=== PATIENT | female | born 1990 | race Caucasian/White ===

== ENCOUNTER 2018-11-27 20:28 | Inpatient (IN) | payer OTHER ==
[2018-11-27 20:57] VITALS: BMI 24.2
--- NOTE | 2018-11-27 21:16 | HP ---
COWS - Scale Resting Pulse: 1= [place] 81-100 Sweatin=Flushed/Facial Moisture Restless Observation: 1= Difficult to Sit Still Pupil Size: 1= Pupils >than Normal Bone or Joint Aches: 4=Acute Joint/Muscle Pain Runny Nose/ Eye Tearin= Runny Nose/Eyes GI Upset > 30mins: 1= Stomach Cramp Tremor Observation: 1= Tremor [place], Not Seen Yawning Observation: 1= 1-2x During Session Anxiety or Irritability: 2=Irritable/Anxious Goose Flesh Skin: 3=Piloerection COWS Score: 19 CIWA Score - Admission Criteria OASAS Guidelines: Admission for Medically Managed Detox: Requires at least one of the followin. CIWA greater than 12 2. Seizures within the past 24 hours 3. Delirium tremens within the past 24 hours 4. Hallucinations within the past 24 hours 5. Acute intervention needed for co occurring medical disorder 6. Acute intervention needed for co occurring psychiatric disorder 7. Severe withdrawal that cannot be handled at a lower level of care (continued vomiting, continued diarrhea, abnormal vital signs) requiring intravenous medication and/or fluids 8. Admission ROS [facility] Chief Complaint: SSEKING DETOX FRO HEROIN ABUSE. C/O WITHDRAWAL SX'S Allergies/Adverse Reactions: Allergies Allergy/AdvReac Type Severity Reaction Status Date / Time No Known Allergies Allergy Verified 11/27/18 20:50 History of Present Illness: 28 Y.O. FEMALE WITH 2 YEAR HX/O OPIOID DEPENDENCE HERE FOR DETOX. THIS IS CLIENTS FIRST VISIT HERE AND SHE REPORTS THIS IS HER FIRST ATTEMPT AT DETOX. PRESENTS WITH C/O WITHDRAWAL SX'S. COWS 19. UTOX + BZO, MOP, GEOFF. STATES ONLY TOOK A 2 MG VALIUM TO HELP HER SLEEP 5 DAYS AGO. SHE IS REFERRED BY A FRIEND. DENIES IVDA, DRUG OVERDOSE, SZ, SI,HI. DOMICILED, EMPLOYED, DENIES LEGALS. Exam Limitations: No Limitations - Ebola screening Have you traveled outside of the country in the last 21 days: No (N) Have you had contact with anyone from an Ebola affected area: No Do you have a fever: No - Review of Systems Constitutional: Chills, Loss of Appetite, Malaise, Night Sweats, Changes in sleep EENT: reports: Nose Congestion, Dental Problems (POOR DENTITION), Other ( RINORRHEA) Respiratory: reports: No Symptoms reported GI: reports: Poor Appetite, Poor Fluid Intake, Abdominal cramping : reports: No Symptoms Reported Musculoskeletal: reports: Back Pain, Joint Pain Integumentary: reports: Flushing, Sweating Neuro: reports: Tremors, Weakness Endocrine: reports: No Symptoms Reported Hematology: reports: No Symptoms Reported Psychiatric: reports: Orientated x3, Agitated (IRRITABLE), Anxious, Depressed Other Systems: Reviewed and Negative Patient History - Patient Medical History Hx Anemia: No Hx Asthma: No Hx Chronic Obstructive Pulmonary Disease (COPD): No Hx Cancer: No Hx Cardiac Disorders: No Hx Congestive Heart Failure: No Hx Hypertension: No Hx Hypercholesterolemia: No Hx Pacemaker: No HX Cerebrovascular Accident: No Hx Seizures: No Hx Dementia: No Hx Diabetes: No Hx Gastrointestinal Disorders: No Hx Liver Disease: No Hx Genitourinary Disorders: No Hx Sexually Transmitted Disorders: No Hx Renal Disease (ESRD): No Hx Thyroid Disease: No Hx Human Immunodeficiency Virus (HIV): No Hx Hepatitis C: No Hx Depression: No Hx Suicide Attempt: No Hx Bipolar Disorder: No Hx Schizophrenia: No Other Medical History: DENIES - Patient Surgical History Past Surgical History: No - PPD History Previous Implant?: Yes Documented Results: Negative w/o proof Implanted On Prior [facility] Admission?: No PPD to be Administered?: Yes - Reproductive History Patient is a Female of Child Bearing Age (11 -55 yrs old): Yes LMP comment: 11/13/2018 Patient : No (NEGATIVE) - Smoking Cessation Smoking history: Current every day smoker Have you smoked in the past 12 months: Yes Aproximately how many cigarettes per day: 5 Cigars Per Day: 0 Hx Chewing Tobacco Use: No Initiated information on smoking cessation: Yes 'Breaking Loose' booklet given: 11/27/18 - Substance & Tx. History Hx Alcohol Use: No Hx Substance Use: Yes Substance Use Type: Cocaine, Heroin Hx Substance Use Treatment: No - Substances abused Heroin Substance route: Inhalation Frequency: Daily Amount used: 6bags/day Age of first use: 26 Date of last use: 11/27/18 Cocaine Substance route: Inhalation Frequency: 1-3 times last 30 days Amount used: 1/2 BAG Age of first use: 25 Date of last use: 11/27/18 Family Disease History - Family Disease History Family History: Denies Admission Physical Exam BHS - Vital Signs Vital Signs: Vital Signs - 24 hr 11/27/18 20:51 Temperature 99.0 F Pulse Rate 92 H Respiratory 18 Rate Blood Pressure 133/87 - Physical General Appearance: Yes: Moderate Distress, Tremorous, Irritable, Sweating, Anxious HEENTM: Yes: EOMI, Normocephalic, Normal Voice, [place] (tearing), Pharynx Normal, Nasal Congestion, Rhinorrhea Respiratory: Yes: Chest Non-Tender, Lungs Clear, Normal Breath Sounds, No Respiratory Distress, No Accessory Muscle Use Neck: Yes: No masses,lesions,Nodules, Supple, Trachea in good position Breast: Yes: Breast Exam Deferred Cardiology: Yes: Regular Rhythm, Regular Rate, S1, S2 Abdominal: Yes: Non Tender, Soft, Increased Bowel Sounds Genitourinary: Yes: Within Normal Limits (no c/o offered) Back: Yes: Normal Inspection Musculoskeletal: Yes: full range of Motion, Gait Steady, Back pain (c/o) Extremities: Yes: Normal Capillary Refill, Normal Range of Motion, Non-Tender, Tremors Neurological: Yes: Fully Oriented, Alert, Motor Strength 5/5, Depressed Affect Integumentary: Yes: Dry, Cold, Other (pilorection resolving ecchymotic areas to arms and legs. client denies domestic violence) Lymphatic: Yes: Within Normal Limits - Diagnostic (1) Opioid dependence with withdrawal Current Visit: Yes Status: Acute (2) Cocaine abuse, uncomplicated Current Visit: Yes Status: Chronic (3) Nicotine dependence Current Visit: Yes Status: Chronic Qualifiers: Nicotine product type: cigarettes Substance use status: uncomplicated Qualified Code(s): F17.210 - Nicotine dependence, cigarettes, uncomplicated (4) Depressed affect Current Visit: Yes Status: Acute (5) At risk for dehydration due to poor fluid intake Current Visit: Yes Status: Acute Cleared for Admission [facility] - Detox or Rehab [facility] Level of Care: Medically Managed Detox Regimen/Protocol: Methadone Claeared for Rehab Admission: No Breathalyzer - Breathalyzer Breathalyzer: 0 Urine Drug Screen - Test Device Lot number: [id number] Expiration date: 10/30/19 - Control Is test valid?: Yes - Results Drug screen NEGATIVE: No Urine drug screen results: GEOFF-Cocaine, MOP-Opiates, BZO-Benzodiazepines Inpatient Rehab Admission - Rehab Decision to Admit Inpatient rehab admission?: No
[2018-11-27] MEDS ORDERED: cloNIDine HCL 0.1 MG TABLET PO PRN (21:22)
[2018-11-27] MEDS ORDERED: P-EPHED 60MG/TRIPROLIDI 2.5MG TABLET PO PRN (21:22)
[2018-11-27] MEDS ORDERED: MELATONIN 5 MG TABLETS PO PRN (21:22)
[2018-11-27] MEDS ORDERED: NALOXONE HCL 0.4 MG/ML VIAL IVPUSH PRN (21:22)
[2018-11-27] MEDS ORDERED: MAGNESIUM CITRATE 300 ML BOTTLE PO PRN (21:22)
[2018-11-27] MEDS ORDERED: MENTHOL/PHENOL 1 EACH UD MM PRN (21:22)
[2018-11-27] MEDS ORDERED: guaiFENesin 200 MG/10 ML 10 ML UNIT-DOSE CUPS PO PRN (21:22)
[2018-11-27] MEDS ORDERED: MAG HYDROX/AL HYDROX/SIMETH 30 ML UNIT-DOSE CUP PO PRN (21:22)
[2018-11-27] MEDS ORDERED: MAGNESIUM HYDROX 2400MG/30ML ORAL SUSPENSION 30 ML CUP PO PRN (21:22)
[2018-11-27] MEDS ORDERED: NICOTINE POLACRILEX 2 MG GUM BUC PRN (21:22)
[2018-11-27] MEDS ORDERED: ACETAMINOPHEN 325 MG TABLET (FP) PO PRN ×2 (21:22)
[2018-11-27] MEDS ORDERED: DICYCLOMINE HCL 10 MG CAPSULE PO PRN (21:22)
[2018-11-27] MEDS ORDERED: ONDANSETRON *ODT* 4 MG TABLET SL PRN (21:22)
[2018-11-27] MEDS ORDERED: BISMUTH SUBSALICYLATE 524 MG/30 ML UD PO PRN (21:22)
[2018-11-27] MEDS ORDERED: IBUPROFEN 400 MG TABLET (FP) PO PRN (21:22)
[2018-11-27] MEDS: THIAMINE HCL 100 MG TABLET (FP) PO SCH (22:33)
[2018-11-27] MEDS ORDERED: METHADONE HCL 10 MG TABLET (FOR DETOX USE ONLY) PO ONE (23:00)
[2018-11-28 00:01] LABS: EPI CELLS 2.6 /HPF (0-5/HPF); HYALINE CASTS 2 /lpf (0-8); URINE APPEARANCE CLEAR; URINE BACTERIA 42.5 /hpf (NEGATIVE); URINE BILIRUBIN NEGATIVE (NEGATIVE); URINE COLOR YELLOW; URINE GLUCOSE (UA) NEGATIVE (NEGATIVE); URINE KETONE 1+ (NEGATIVE); URINE LEUK ESTERASE NEGATIVE (NEGATIVE); URINE NITRITE NEGATIVE (NEGATIVE); URINE PROTEIN NEGATIVE (NEGATIVE); URINE RBC 3 /hpf (0-4); URINE WBC 2 /hpf (0-5)
[2018-11-28] MEDS: PRENATAL VITAMINS W/ FOLIC ACID TABLET (FP) PO SCH (09:50)
[2018-11-28] MEDS: hydrOXYzine PAMOATE 25 MG CAPSULE (FP) PO PRN ×2 (09:50→22:15)
[2018-11-28] MEDS: NICOTINE 14 MG/24 HOURS TOPICAL PATCH TD SCH (09:52)
[2018-11-28] MEDS ORDERED: METHADONE HCL 10 MG TABLET (FOR DETOX USE ONLY) PO ONE (10:00)
[2018-11-28 10:13] LABS: CREATININE 0.8 mg/dL (0.55-1.3)
[2018-11-28 10:14] LABS: ALBUMIN 3.6 g/dl (3.4-5.0); BILIRUBIN,TOTAL 0.8 mg/dL (0.2-1); CALCIUM 9.1 mg/dL (8.5-10.1); POTASSIUM 4.1 mmol/L (3.5-5.1); TOT PROT 6.7 g/dl (6.4-8.2)
[2018-11-28 10:25] LABS: HEMOGLOBIN 13.3 GM/dL (10.7-15.3); MCH 32.2 pg (25.7-33.7); MCHC 34.1 g/dl (32.0-36.0); MEAN CELL VOLUME 94.5 fl (80-96); MEAN PLT VOLUME 7.4 fl (7.5-11.1); PLATELET COUNT 245 K/MM3 (134-434); RBC 4.12 M/mm3 (3.60-5.2); RDW 12.9 % (11.6-15.6); WHITE BLOOD COUNT 7.4 K/mm3 (4.0-10.0)
--- NOTE | 2018-11-28 10:38 | PN ---
BHS COWS - Scale Resting Pulse: 1= [place] 81-100 Sweatin= Chills/Flushing Restless Observation: 1= Difficult to Sit Still Pupil Size: 1= Pupils >than Normal Bone or Joint Aches: 1= Mild Discomfort Runny Nose/ Eye Tearin= Nasal Congestion GI Upset > 30mins: 1= Stomach Cramp Tremor Observation of Outstretched Hands: 2= Slight Tremor Visible Yawning Observation: 0= None Anxiety or Irritability: 2=Irritable/Anxious Goose Flesh Skin: 3=Piloerection COWS Score: 14 [facility] Progress Note (SOAP) Subjective: doing ok with methadone detox regimen tired low energy preferring to rest on bed today Objective: 11/28/18 10:35 Vital Signs Temperature 98.6 F 11/28/18 09:27 Pulse Rate 84 11/28/18 09:27 Respiratory Rate 18 11/28/18 09:27 Blood Pressure 136/90 11/28/18 09:27 O2 Sat by Pulse Oximetry (%) Laboratory Last Values WBC 7.4 K/mm3 (4.0-10.0) 11/28/18 07:30 RBC 4.12 M/mm3 (3.60-5.2) 11/28/18 07:30 Hgb 13.3 GM/dL (10.7-15.3) 11/28/18 07:30 Hct 39.0 % (32.4-45.2) 11/28/18 07:30 MCV 94.5 fl (80-96) 11/28/18 07:30 MCH 32.2 pg (25.7-33.7) 11/28/18 07:30 MCHC 34.1 g/dl (32.0-36.0) 11/28/18 07:30 RDW 12.9 % (11.6-15.6) 11/28/18 07:30 Plt Count 245 K/MM3 (134-434) 11/28/18 07:30 MPV 7.4 fl (7.5-11.1) L 11/28/18 07:30 Sodium 140 mmol/L (136-145) 11/28/18 07:30 Potassium 4.1 mmol/L (3.5-5.1) 11/28/18 07:30 Chloride 108 mmol/L (98-107) H 11/28/18 07:30 Carbon Dioxide 27 mmol/L (21-32) 11/28/18 07:30 Anion Gap 6 MMOL/L (8-16) L 11/28/18 07:30 BUN 16 mg/dL (7-18) 11/28/18 07:30 Creatinine 0.8 mg/dL (0.55-1.3) 11/28/18 07:30 Est GFR (CKD-EPI)AfAm 116.28 11/28/18 07:30 Est GFR (CKD-EPI)NonAf 100.33 11/28/18 07:30 Random Glucose 93 mg/dL (74-106) 11/28/18 07:30 Calcium 9.1 mg/dL (8.5-10.1) 11/28/18 07:30 Total Bilirubin 0.8 mg/dL (0.2-1) 11/28/18 07:30 AST 15 U/L (15-37) 11/28/18 07:30 ALT 34 U/L (13-61) 11/28/18 07:30 Alkaline Phosphatase 80 U/L (45-117) 11/28/18 07:30 Total Protein 6.7 g/dl (6.4-8.2) 11/28/18 07:30 Albumin 3.6 g/dl (3.4-5.0) 11/28/18 07:30 Urine Color Yellow 11/27/18 22:03 Urine Appearance Clear 11/27/18 22:03 Urine pH 6.0 (5.0-8.0) 11/27/18 22:03 Ur Specific [place] 1.022 (1.010-1.035) 11/27/18 22:03 Urine Protein Negative (NEGATIVE) 11/27/18 22:03 Urine Glucose (UA) Negative (NEGATIVE) 11/27/18 22:03 Urine Ketones 1+ (NEGATIVE) H 11/27/18 22:03 Urine Blood 1+ (NEGATIVE) H 11/27/18 22:03 Urine Nitrite Negative (NEGATIVE) 11/27/18 22:03 Urine Bilirubin Negative (NEGATIVE) 11/27/18 22:03 Urine Urobilinogen 1.0 mg/dL (0.2-1.0) 11/27/18 22:03 Ur Leukocyte Esterase Negative (NEGATIVE) 11/27/18 22:03 Urine WBC (Auto) 2 /hpf (0-5) 11/27/18 22:03 Urine RBC (Auto) 3 /hpf (0-4) 11/27/18 22:03 Urine Casts (Auto) 2 /lpf (0-8) 11/27/18 22:03 U Epithel Cells (Auto) 2.6 /HPF (0-5/HPF) 11/27/18 22:03 Urine Bacteria (Auto) 42.5 /hpf (NEGATIVE) 11/27/18 22:03 POC Urine HCG, Qual Negative 11/27/18 21:03 lab noted repeat ua Assessment: 11/28/18 10:37 withdrawal sx Plan: continue detox
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
[2018-11-28] MEDS ORDERED: PNEUMOC 13-VAL CONJ-DIP CRM/PF 0.5 ML DISP.SYRIN IM ONE (12:00)
--- NOTE | 2018-11-28 12:56 | EKG ---
Test Reason : Blood Pressure : / mmHG Vent. Rate : 053 BPM Atrial Rate : 053 BPM P-R Int : 146 ms QRS Dur : 086 ms QT Int : 392 ms P-R-T Axes : 062 044 042 degrees QTc Int : 367 ms SINUS BRADYCARDIA OTHERWISE NORMAL ECG NO PREVIOUS ECGS AVAILABLE Confirmed by RICCI VEGA MD ([id number]) on 11/28/2018 12:56:11 PM Referred By: Confirmed By:RICCI VEGA MD
[2018-11-28] MEDS: THIAMINE HCL 100 MG TABLET (FP) PO SCH (22:10)
[2018-11-28] MEDS: traZODone HCL 50 MG TABLET (FP) PO SCH (22:11)
[2018-11-29] MEDS ORDERED: METHADONE HCL 10 MG TABLET (FOR DETOX USE ONLY) PO ONE (10:00)
[2018-11-29] MEDS: hydrOXYzine PAMOATE 25 MG CAPSULE (FP) PO PRN ×2 (10:48→22:06)
[2018-11-29] MEDS: METHOCARBAMOL 500 MG TABLET PO PRN ×2 (10:48→22:06)
[2018-11-29] MEDS: NICOTINE 14 MG/24 HOURS TOPICAL PATCH TD SCH (11:17)
[2018-11-29] MEDS: PRENATAL VITAMINS W/ FOLIC ACID TABLET (FP) PO SCH (11:18)
--- NOTE | 2018-11-29 16:26 | PN ---
BHS COWS - Scale Resting Pulse: 0= [place] 80 or Below Sweatin=Flushed/Facial Moisture Restless Observation: 1= Difficult to Sit Still Pupil Size: 0= Normal to Room Light Bone or Joint Aches: 2= Severe Diffuse Aches Runny Nose/ Eye Tearin= None GI Upset > 30mins: 2= Nausea/Diarrhea Tremor Observation of Outstretched Hands: 0= None Yawning Observation: 1= 1-2x During Session Anxiety or Irritability: 2=Irritable/Anxious Goose Flesh Skin: 3=Piloerection COWS Score: 13 BHS Progress Note (SOAP) Subjective: Body Aches, Sweating, Nausea, Anxious. Objective: PATIENT A & O X 3, OBSERVED AMBULATING ON UNIT UNASSISTED. IN NO ACUTE DISTRESS. 11/29/18 16:25 Vital Signs Temperature 98.9 F 11/29/18 12:56 Pulse Rate 77 11/29/18 12:56 Respiratory Rate 20 11/29/18 12:56 Blood Pressure 121/76 11/29/18 12:56 O2 Sat by Pulse Oximetry (%) Laboratory Tests 11/27/18 11/27/18 11/28/18 21:03 22:03 07:30 WBC 7.4 RBC 4.12 Hgb 13.3 Hct 39.0 MCV 94.5 MCH 32.2 MCHC 34.1 RDW 12.9 Plt Count 245 MPV 7.4 L Sodium Potassium Chloride Carbon Dioxide Anion Gap BUN Creatinine Est GFR (CKD-EPI)AfAm Est GFR (CKD-EPI)NonAf Random Glucose Calcium Total Bilirubin AST ALT Alkaline Phosphatase Total Protein Albumin Urine Color Yellow Urine Appearance Clear Urine pH 6.0 Ur Specific [place] 1.022 Urine Protein Negative Urine Glucose (UA) Negative Urine Ketones 1+ H Urine Blood 1+ H Urine Nitrite Negative Urine Bilirubin Negative Urine Urobilinogen 1.0 Ur Leukocyte Esterase Negative Urine WBC (Auto) 2 Urine RBC (Auto) 3 Urine Casts (Auto) 2 U Epithel Cells (Auto) 2.6 Urine Bacteria (Auto) 42.5 POC Urine HCG, Qual Negative RPR Titer 11/28/18 11/28/18 07:30 07:30 WBC RBC Hgb Hct MCV MCH MCHC RDW Plt Count MPV Sodium 140 Potassium 4.1 Chloride 108 H Carbon Dioxide 27 Anion Gap 6 L BUN 16 Creatinine 0.8 Est GFR (CKD-EPI)AfAm 116.28 Est GFR (CKD-EPI)NonAf 100.33 Random Glucose 93 Calcium 9.1 Total Bilirubin 0.8 AST 15 ALT 34 Alkaline Phosphatase 80 Total Protein 6.7 Albumin 3.6 Urine Color Urine Appearance Urine pH Ur Specific [place] Urine Protein Urine Glucose (UA) Urine Ketones Urine Blood Urine Nitrite Urine Bilirubin Urine Urobilinogen Ur Leukocyte Esterase Urine WBC (Auto) Urine RBC (Auto) Urine Casts (Auto) U Epithel Cells (Auto) Urine Bacteria (Auto) POC Urine HCG, Qual RPR Titer Nonreactive LABS NOTED. Assessment: 11/29/18 16:26 WITHDRAWAL SYMPTOMS. Plan: CONTINUE DETOX. INCREASE DAILY PO FLUID / WATER INTAKE. LIDODERM PATCH FOR UPPER BACK PAIN.
[2018-11-29] MEDS: LIDOCAINE 5% TOPICAL PATCH TP SCH (18:06)
[2018-11-29] MEDS: traZODone HCL 50 MG TABLET (FP) PO SCH (22:06)
[2018-11-29] MEDS: THIAMINE HCL 100 MG TABLET (FP) PO SCH (22:06)
[2018-11-29] MEDS: LIDOCAINE PATCH REMOVAL MC SCH (22:07)
--- NOTE | 2018-11-30 07:40 | PN ---
BHS Progress Note Note: SEEN FOR POSSIBLE +PPD R FOREARM NOTED WITH BLANCHABLE REDNESS WITH MILD INDURATION OF LESS THAN 5 CM CLIENT REPORTS SCRATCHING AT SOME POINT NEGATIVE PPD READING
[2018-11-30] MEDS: hydrOXYzine PAMOATE 25 MG CAPSULE (FP) PO PRN (07:57)
[2018-11-30] MEDS ORDERED: METHADONE HCL 10 MG TABLET (FOR DETOX USE ONLY) PO ONE (10:00)
[2018-11-30] MEDS: NICOTINE 14 MG/24 HOURS TOPICAL PATCH TD SCH (10:00)
[2018-11-30] MEDS: PRENATAL VITAMINS W/ FOLIC ACID TABLET (FP) PO SCH (10:00)
[2018-11-30] MEDS: LIDOCAINE 5% TOPICAL PATCH TP SCH (10:01)
--- NOTE | 2018-11-30 17:23 | PN ---
BHS COWS - Scale Resting Pulse: 0= [place] 80 or Below Sweatin= Chills/Flushing Restless Observation: 1= Difficult to Sit Still Pupil Size: 0= Normal to Room Light Bone or Joint Aches: 2= Severe Diffuse Aches Runny Nose/ Eye Tearin= None GI Upset > 30mins: 2= Nausea/Diarrhea Tremor Observation of Outstretched Hands: 2= Slight Tremor Visible Yawning Observation: 1= 1-2x During Session Anxiety or Irritability: 2=Irritable/Anxious Goose Flesh Skin: 0=Smooth Skin COWS Score: 11 [facility] Progress Note (SOAP) Subjective: Anxious, Body aches, Sweating, tremors, Nausea. Objective: PATIENT A & O X 3, OBSERVED AMBULATING ON UNIT UNASSISTED. IN NO ACUTE DISTRESS. 11/30/18 17:23 Vital Signs Temperature 98.1 F 11/30/18 14:03 Pulse Rate 72 11/30/18 14:03 Respiratory Rate 18 11/30/18 14:03 Blood Pressure 112/68 11/30/18 14:03 O2 Sat by Pulse Oximetry (%) Laboratory Tests 11/27/18 11/27/18 11/28/18 21:03 22:03 07:30 WBC 7.4 RBC 4.12 Hgb 13.3 Hct 39.0 MCV 94.5 MCH 32.2 MCHC 34.1 RDW 12.9 Plt Count 245 MPV 7.4 L Sodium Potassium Chloride Carbon Dioxide Anion Gap BUN Creatinine Est GFR (CKD-EPI)AfAm Est GFR (CKD-EPI)NonAf Random Glucose Calcium Total Bilirubin AST ALT Alkaline Phosphatase Total Protein Albumin Urine Color Yellow Urine Appearance Clear Urine pH 6.0 Ur Specific [place] 1.022 Urine Protein Negative Urine Glucose (UA) Negative Urine Ketones 1+ H Urine Blood 1+ H Urine Nitrite Negative Urine Bilirubin Negative Urine Urobilinogen 1.0 Ur Leukocyte Esterase Negative Urine WBC (Auto) 2 Urine RBC (Auto) 3 Urine Casts (Auto) 2 U Epithel Cells (Auto) 2.6 Urine Bacteria (Auto) 42.5 POC Urine HCG, Qual Negative RPR Titer 11/28/18 11/28/18 07:30 07:30 WBC RBC Hgb Hct MCV MCH MCHC RDW Plt Count MPV Sodium 140 Potassium 4.1 Chloride 108 H Carbon Dioxide 27 Anion Gap 6 L BUN 16 Creatinine 0.8 Est GFR (CKD-EPI)AfAm 116.28 Est GFR (CKD-EPI)NonAf 100.33 Random Glucose 93 Calcium 9.1 Total Bilirubin 0.8 AST 15 ALT 34 Alkaline Phosphatase 80 Total Protein 6.7 Albumin 3.6 Urine Color Urine Appearance Urine pH Ur Specific [place] Urine Protein Urine Glucose (UA) Urine Ketones Urine Blood Urine Nitrite Urine Bilirubin Urine Urobilinogen Ur Leukocyte Esterase Urine WBC (Auto) Urine RBC (Auto) Urine Casts (Auto) U Epithel Cells (Auto) Urine Bacteria (Auto) POC Urine HCG, Qual RPR Titer Nonreactive LABS NOTED. Assessment: 11/30/18 17:24 WITHDRAWAL SYMPTOMS. Plan: CONTINUE DETOX. PRN ZOFRAN SL FOR NAUSEA. PATIENT SCHEDULED FOR D/C TOMORROW AM.
[2018-11-30] MEDS: THIAMINE HCL 100 MG TABLET (FP) PO SCH (22:26)
[2018-11-30] MEDS: traZODone HCL 50 MG TABLET (FP) PO SCH (22:26)
[2018-11-30] MEDS: METHOCARBAMOL 500 MG TABLET PO PRN (22:29)
[2018-12-01] MEDS: LIDOCAINE PATCH REMOVAL MC SCH (00:01)
[2018-12-01] MEDS ORDERED: METHADONE HCL 5 MG TABLET (FOR DETOX USE ONLY) PO ONE (06:00)
[2018-12-01 06:09] VITALS: BP 115/60; PULSE 64; TEMP 97.5
--- NOTE | 2018-12-01 08:46 | PN ---
[facility] Progress Note Note: Patient is scheduled for discharge today. Script for 30 days supply of Trazadone 30 mg/hs is electronically transmitted to [facility] at [address] [place], [place] [id number]
--- NOTE | 2018-12-01 11:11 | PN ---
B[facility] COWS - Scale Resting Pulse: 0= [place] 80 or Below Sweatin= No chills or Flushing Restless Observation: 0= Sits Still Pupil Size: 0= Normal to Room Light Bone or Joint Aches: 1= Mild Discomfort Runny Nose/ Eye Tearin= None GI Upset > 30mins: 0= None Tremor Observation of Outstretched Hands: 0= None Yawning Observation: 0= None Anxiety or Irritability: 1=Feels Anxious/Irritable Goose Flesh Skin: 0=Smooth Skin COWS Score: 2 [facility] Progress Note (SOAP) Subjective: offers no complaint Objective: 12/01/18 11:10 A & O x 3 Gait steady anxious about work not in acute distress Vital Signs Temperature 97.5 F L 12/01/18 06:09 Pulse Rate 64 12/01/18 06:09 Respiratory Rate 18 12/01/18 06:30 Blood Pressure 115/60 12/01/18 06:09 O2 Sat by Pulse Oximetry (%) Assessment: 12/01/18 11:11 detox completed Plan: for discharge
--- NOTE | 2018-12-01 11:15 | DS ---
[facility] Detox Discharge Summary Admission Date: 11/27/18 Discharge Date: 12/01/18 - History Additional Comments: pt for discharge today A & O x 3 and in no acute distress Denies any complaint, Leaving now to go arrange coverage for work, states she will return tomorrow for aftercare rehab. Denies home meds Narcan ordered, patienmt verbalized understanding to pick it up from [facility]. - Physical Exam Results Vital Signs: Vital Signs Temperature 97.5 F L 12/01/18 06:09 Pulse Rate 64 12/01/18 06:09 Respiratory Rate 18 12/01/18 06:30 Blood Pressure 115/60 12/01/18 06:09 O2 Sat by Pulse Oximetry (%) Pertinent Admission Physical Exam Findings: withdrawal sx - Treatment Hospital Course: Detox Protocol Followed, Detoxed Safely, Responded well, Discharged Condition Good Patient has Accepted a Rehab Referral to: see note above - Medication Discharge Medications: Ambulatory Orders Naloxone HCl [Narcan] 4 mg NS PRN PRN 1 Days #1 spray 12/01/18 traZODone HCL [Desyrel -] 50 mg PO HS #30 tablet 12/01/18 - AMA Did Patient Leave Against Medical Advice: No
== END 2018-12-01 09:16 | disposition home or self-care (01) | DRG 773 ==
LOC: YASAS 20:28 → Y3N 21:31
PROVIDERS: ADMIT Surgery; ATTEND Surgery
PROC: HZ2ZZZZ Detoxification Services for Substance Abuse Treatment (ICD-10-PCS; principal; 2018-11-27)
DX: F11.23 Opioid dependence with withdrawal (principal); F14.10 Cocaine abuse, uncomplicated; F17.210 Nicotine dependence, cigarettes, uncomplicated; F19.282 Other psychoactive substance dependence with psychoactive substance-induced sleep disorder; M54.9 Dorsalgia, unspecified; G89.29 Other chronic pain; R45.89 Other symptoms and signs involving emotional state; Z91.89 Other specified personal risk factors, not elsewhere classified
CPT/HCPCS: 36415; 80053; 81003; 81025; 85027; 86593; 93005; 93010